=== PATIENT | male | born 1965 | race Caucasian/White ===

== ENCOUNTER → 2020-09-09 11:35 | Outpatient (CLI) | payer OTHER, MEDICAID, SELFPAY ==
[2020-09-09 13:18] LABS: COVID19 -Nasal RAPID Negative (Negative)
== END ==
PROVIDERS: Visit Provider Student in an Organized Health Care Education/Training Program
DX: Z01.812 Encounter for preprocedural laboratory examination (principal); Z20.822 Contact with and (suspected) exposure to COVID-19
CPT/HCPCS: 87635

== ENCOUNTER → 2020-09-10 10:55 | Outpatient (CLI) | payer OTHER, MEDICAID, SELFPAY ==
[2020-09-10 12:06] LABS: COVID19 -Nasal RAPID Negative (Negative)
== END ==
PROVIDERS: Visit Provider Physician Assistant
DX: Z01.812 Encounter for preprocedural laboratory examination (principal); Z20.822 Contact with and (suspected) exposure to COVID-19
CPT/HCPCS: 87635

== ENCOUNTER → 2020-09-25 08:08 | Outpatient (CLI) | payer OTHER, MEDICAID, SELFPAY ==
--- NOTE | 2020-09-25 | DI.US.S_ITS ---
PROCEDURE: US RENAL COMPLETE INDICATIONS: NEPHROLITHIASIS TECHNIQUE: Real-time scanning was performed of the kidneys and bladder, with image documentation. COMPARISON: [facility], CT, CT KUB, 04/23/2020, 7:46. FINDINGS: Kidneys: Kidneys are normal in size. Right kidney measures 11.5 cm long; left kidney measures 11.3 cm long. Right renal cortical thickness is 1.3 cm; left renal cortical thickness is 2.4 cm. Renal cortical echotexture is normal. No hydronephrosis or nephrolithiasis. No suspicious solid mass lesions. Bladder: Pre-void bladder volume is 223 mL. Post-void residual is 72 mL. Pre-void images demonstrate no intraluminal masses or stones. The bladder wall appears thickened, measuring 6 mm prevoid and 10 mm postvoid. On pre-void images, both ureteral jets are noted with color Doppler interrogation. (Of note, ureteral jets may not be detectable in up to 25% of cases due to insufficient differences in specific gravity between ureteral and bladder urine). Miscellaneous: No free pelvic fluid. IMPRESSION: No shadowing stones are seen. There is no hydronephrosis. Moderate postvoid residual, 72 cc. Bladder wall thickening is seen. Dictated by: Robbin Luna M.D. on 09/25/2020 at 9:31 Approved by: Robbin Luna M.D. on 09/25/2020 at 9:32
== END ==
PROVIDERS: Referring Provider Urology; Visit Provider Urology
DX: N20.0 Calculus of kidney (principal)
CPT/HCPCS: 76770